=== PATIENT | female | born 1990 | race African-American/Black ===

== ENCOUNTER 2023-12-26 19:09 | Emergency (ER) | payer OTHER ==
[~2023-12-26] VITALS: Ht 172.7 cm; Wt 78.5 kg
[2023-12-26 19:19] VITALS: BP 144/90; PULSE 90; RESP 16; TEMP 97.6; O2SAT 99
[2023-12-26] MEDS: NACL 0.9% 1,000 ML IV SCH (19:46)
[2023-12-26 19:49] VITALS: BP 156/101; PULSE 92; RESP 18; TEMP 97.9
[2023-12-26 19:51] LABS: BASOPHILS # (AUTO) 0.1 K/uL (0.00-0.22); BASOPHILS % (AUTO) 0.5 % (0.0-2.0); EOSINOPHILS % (AUTO) 0.1 % (0.0-4.0); HEMATOCRIT 40.2 % (36-48); HEMOGLOBIN 13.8 g/dL (12.0-16.0); LYMPHOCYTES # (AUTO) 2.2 K/uL (2.5-16.5); LYMPHOCYTES % (AUTO) 19.6 % (20.5-51.1); MEAN CORPUSCULAR HEMOGLOBIN 32 pg (27-31); MEAN CORPUSCULAR HGB CONC 34 g/dL (33-37); MEAN CORPUSCULAR VOLUME 92.9 fL (80-94); MONOCYTES # (AUTO) 0.7 K/uL (0.8-1.0); MONOCYTES % (AUTO) 6.5 % (1.7-9.3); NEUTROPHILS # (AUTO) 8.3 K/uL (1.8-7.7); NEUTROPHILS % (AUTO) 73.3 % (42.2-75.2); PLATELET COUNT (AUTO) 371 K/uL (140-450); RED BLOOD CELL COUNT(AUTO) 4.33 MIL/uL (4.20-5.40); RED CELL DISTRIBUTION WIDTH 13.9 % (11.6-13.7); WHITE BLOOD COUNT (AUTO) 11.3 K/uL (4.8-10.8)
[2023-12-26 19:53] LABS: BILIRUBIN,URINE 2+ (NEGATIVE); BLOOD, URINE 1+ (NEGATIVE); LEUKOCYTE ESTERASE ,URINE TRACE (NEGATIVE); NITRITE, URINE NEGATIVE (NEGATIVE); PROTEIN,URINE 1+ (NEGATIVE); UGLUCOSE NEGATIVE (NEGATIVE); UROBILINOGEN,URINE 0.2 EU/dL (0.2 - 1)
[2023-12-26 19:54] LABS: APPEARANCE,URINE CLOUDY (CLEAR); COLOR,URINE AMBER (YELLOW)
[2023-12-26 19:58] VITALS: O2SAT 98
[2023-12-26 20:05] LABS: RBC,URINE 0-5 /HPF (0-5)
[2023-12-26 20:06] LABS: BACTERIA,URINE 1+ /HPF (None Seen)
[2023-12-26 20:09] LABS: CALCIUM 9.3 mg/dL (8.5-10.1); CARBON DIOXIDE 25.8 mmol/L (21-32); CREATININE 0.9 mg/dL (0.6-1.3)
[2023-12-26 20:14] LABS: POTASSIUM 2.8 mmol/L (3.5-5.1)
[2023-12-26 20:15] LABS: ALBUMIN 4.2 g/dL (3.4-5.0); BILIRUBIN,DIRECT 0.2 mg/dL (0.0-0.3); TOTAL BILIRUBIN 0.8 mg/dL (0.0-1.0); TOTAL PROTEIN, SERUM 8.1 g/dL (6.4-8.2)
[2023-12-26] MEDS: ONDANSETRON 4 MG/2 ML VIAL IVP ONE (20:16)
[2023-12-26] MEDS: FAMOTIDINE 20 MG/2 ML VIAL IVP ONE (20:17)
[2023-12-26] MEDS: POTASSIUM CHLORIDE 20% 40 MEQ/15 ML UDC PO ONE (20:28)
[2023-12-26] MEDS: DEXT 5% / NACL 0.9% 500 ML IV ONE (20:47)
[2023-12-26] MEDS: KETOROLAC 30 MG/ML VIAL IVP ONE (20:52)
[2023-12-26] MEDS ORDERED: ONDA-188 SL (21:02)
[2023-12-26] MEDS ORDERED: FAMO-90 PO (21:02)
== END 2023-12-26 21:23 | disposition home or self-care (01) ==
LOC: MED 19:09
DX: E87.6 Hypokalemia (principal); E86.0 Dehydration; R10.13 Epigastric pain; R11.2 Nausea with vomiting, unspecified; Z79.899 Other long term (current) drug therapy
CPT/HCPCS: 36415; 71045; 80048; 80076; 81001; 81025; 83690; 85025; 87086; 96361; 96374; 96375; 99284; J1885; J2405; J3490; J7030; J7042